=== PATIENT | female | born 1950 | race Caucasian/White ===

== ENCOUNTER 2020-12-24 21:27 | Emergency (ER) | payer BC, MEDICARE, SELFPAY ==
[2020-12-24 21:49] VITALS: BP 160/87; PULSE 100; RESP 18; TEMP 37.1; O2SAT 100; BMI 28.4
[2020-12-24 21:59] VITALS: BP 160/87; PULSE 80; RESP 16
[2020-12-24 22:06] LABS: Basophils % 0.2 % (0.1-2.0); Eosinophils % 0.1 % (0.1-12.0); Hematocrit 47.3 % (37.0-47.0); Hemoglobin 15.6 g/dL (12.2-16.2); Lymphocytes # 1.5 K/mm3 (0.7-4.5); Lymphocytes % 10.8 % (10-50); Mean Corpuscular HGB Conc 32.9 g/dL (31.8-35.4); Mean Corpuscular Hemoglobin 30.7 pg (27.0-31.2); Mean Corpuscular Volume 93.2 fl (81-99); Mean Platelet Volume 7.9 fl (7.4-10.4); Monocytes # 0.6 K/mm3 (0.1-1.0); Neutrophils # 11.7 K/mm3 (1.8-7.8); Neutrophils % 84.9 % (37.0-80.0); Platelet Count 387 K/mm3 (142-424); Red Blood Count 5.07 M/mm3 (4.20-5.40); Red Cell Distribution Width 13.1 % (11.5-17.5); White Blood Count 13.8 K/mm3 (4.8-10.8)
[2020-12-24 22:08] LABS: Chloride 105 mmol/L (98-107); Potassium 3.8 mmoL/L (3.5-5.1); Sodium 140 mmol/L (136-145)
[2020-12-24 22:11] LABS: Anion Gap 13.8 mEq/L (5-15); Blood Urea Nitrogen 12 mg/dl (7-17); Calcium 9.6 mg/dl (8.4-10.2); Carbon Dioxide 25 mmol/L (22.0-30.0); Creatinine Clearance Estimated 65 mL/min (50-200); Estimated Glomerular Filt Rate 99 ml/min (>60); GFR (African American) 120 ML/MIN (>60); Glucose 144 mg/dl (74-100)
--- NOTE | 2020-12-24 22:12 | [facility].EDNVD ---
ED Disposition Clinical Impression: Car sickness Qualifiers: Encounter type: initial encounter Qualified Code(s): T75.3XXA - Motion sickness, initial encounter Disposition: Home, Self-Care Condition on Discharge: Good Instructions: DI for Nausea -- Adult Additional Instructions: call pcp in am Referrals: PCP,No [Primary Care Provider] - - Critical Care Critical Care Time: No Attestation: On 12/24/20, the high probability of a clinically significant, sudden or life threatening deterioration of the following system(s) required my full and direct attention, intervention and personal management. The time I documented below is in addition to time spent performing reported procedures but includes the following listed in this critical care notation. Medical Decision Making - Medical Records Medical records reviewed: Yes: I reviewed the patient's medical records. - Edgardo Inquiry Pt receiving controlled substance: No Vital Signs: 12/24/20 21:49 12/24/20 21:59 Temperature 98.7 F Temperature Source Oral Pulse Rate 80 Pulse Rate [Brachial] 100 H Respiratory Rate 18 16 Blood Pressure 160/87 H Blood Pressure [Left Arm] 160/87 H Blood Pressure Mean [Left Arm] 111 Blood Pressure Source Automatic Cuff Blood Pressure Source [Left Arm] Automatic Cuff Blood Pressure Position Sitting Blood Pressure Position [Left Arm] Supine 02 Sat by Pulse Oximetry 100 Oxygen Delivery Method Room Air - Lab Data Lab results reviewed: Yes: I reviewed the patient's lab results. Lab Results 12/24/20 21:40: WBC 13.8 H, RBC 5.07, Hgb 15.6, Hct 47.3 H, MCV 93.2, MCH 30.7, MCHC 32.9, RDW 13.1, Plt Count 387, MPV 7.9, Neut % (Auto) 84.9 H, Lymph % (Auto) 10.8, [place] % (Auto) 4.0, Eos % (Auto) 0.1, Baso % (Auto) 0.2, Neut # (Auto) 11.7 H, Lymph # (Auto) 1.5, [place] # (Auto) 0.6, Eos # (Auto) 0.0, Baso # (Auto) 0.0 12/24/20 21:40: Sodium 140, Potassium 3.8, Chloride 105, Carbon Dioxide 25, Anion Gap 13.8, BUN 12, Creatinine 0.60, Estimated Creat Clear 65, Estimated GFR 99, Est GFR ( Amer) 120, Glucose 144 H, Calcium 9.6 12/24/20 21:40: Troponin I < 0.01 12/24/20 22:25: Urine Color Yellow, Urine Appearance Clear, Urine pH 6.0, Ur Specific [place] >= 1.030, Urine Protein Trace, Urine Glucose (UA) Negative, Urine Ketones 2+, Urine Blood Trace-i, Urine Nitrate Negative, Urine Bilirubin Negative, Urine Urobilinogen 0.2, Ur Leukocyte Esterase Negative, Urine RBC Occasional, Urine WBC 5-10, Ur Squamous Epith Cells Occasional, Urine Bacteria 2+, Urine Mucus 3+ Result diagrams: 12/24/20 21:40 12/24/20 21:40 Orders (Tests/Meds): ED MEDICATIONS Generic Name Dose Route Start Last Admin Trade Name Freq PRN Reason Stop Dose Admin Sodium Chloride 1,000 mls @ 999 mls/hr 12/24/20 22:15 12/24/20 22:07 Sod Chlor 0.9% 1000ml Bag IV 12/24/20 23:15 999 mls/hr .Q1H1M LIZA Administration Sodium Chloride 1,000 mls @ 999 mls/hr 12/25/20 01:00 12/25/20 00:54 Sod Chlor 0.9% 1000ml Bag IV 12/25/20 02:00 999 mls/hr .Q1H1M LIZA Administration Sodium Chloride 8 ml 12/25/20 00:51 Sodium Chloride 0.9% 10ml Vial IV 01/24/21 00:50 NEEDED PRN dilute pepcid Discontinued Medications Generic Name Dose Route Start Last Admin Trade Name Freq PRN Reason Stop Dose Admin Famotidine 20 mg 12/25/20 00:51 12/25/20 00:54 Famotidine 20mg/2ml Vial IV 12/25/20 00:52 20 mg ONCE ONE Administration Metoclopramide HCl 10 mg 12/25/20 00:51 12/25/20 00:54 Metoclopramide Hcl 10mg/2ml Vial IVP 12/25/20 00:52 10 mg ONCE ONE Administration Ondansetron HCl 4 mg 12/24/20 22:01 12/24/20 22:07 Ondansetron 4mg/2ml Vial IV 12/24/20 22:02 4 mg ONCE ONE Administration Promethazine HCl 12.5 mg 12/24/20 22:14 12/24/20 22:15 Promethazine Hcl 25mg/Ml 1ml Vial IV 12/24/20 22:15 12.5 mg ONCE ONE Administration Sodium Chloride 25 ml 12/24/20 22:14 12/24/20 22:15 Sodium Chloride 0.9% 25ml Bag I
[2020-12-24 22:33] LABS: Troponin I < 0.01 ng/ml (0.00-0.034)
[2020-12-24 22:35] LABS: Appearance,Urine CLEAR (Clear); Blood, Urine TRACE-I (Negative); Color,Urine YELLOW (Yellow); Glucose,Urine (UA) Negative (Negative); Ketones,Urine 2+ (Negative); Leukocyte Esterase,Urine Negative (Negative); Microscopic, Urine URINE MICROSCOPIC (MICROSCOPIC); Nitrate,Urine Negative (Negative); Protein,Urine TRACE (Negative); Specific Gravity, Urine >= 1.030 (1.005-1.030); Urobilinogen,Urine 0.2 EU/dl (0.2)
[2020-12-24 22:44] LABS: Bilirubin,Urine Negative (Negative)
[2020-12-24 22:54] LABS: Bacteria,Urine 2+ /lpf; Mucus,Urine 3+ /lpf; RBC,Urine Occasional #/hpf (0-3); Squamous Epithelial Cell,Urine Occasional #/hpf (0-5)
[2020-12-25 01:43] VITALS: BP 162/80; PULSE 65; RESP 16; TEMP 36.8; O2SAT 98
== END 2020-12-25 01:45 | disposition home or self-care (01) ==
PROVIDERS: Emergency Provider Emergency Medicine
DX: T75.3XXA Motion sickness, initial encounter (principal); G35 Multiple sclerosis; I48.91 Unspecified atrial fibrillation; Z79.899 Other long term (current) drug therapy
CPT/HCPCS: 80048; 81001; 84484; 85025; 87086; 96365; 96366; 96376; 99282; J2405